=== PATIENT | male | born 1935 | race Caucasian/White ===

== ENCOUNTER → 2016-05-10 | Outpatient (CLI) | payer MEDICARE, BC ==
[~2016-05-10] MED LIST: AMARYL2 MG PO; CLARITIN10 MG PO; COREG12.5 MG PO; ENALAPRIL20 MG PO; FISH OIL 1000MG1 CAP PO; VERAPAMIL180 MG/TAB PO
== END ==
LOC: LAB 11:46
DX: E11.9 Type 2 diabetes mellitus without complications (principal); I10 Essential (primary) hypertension; Z12.5 Encounter for screening for malignant neoplasm of prostate; R20.2 Paresthesia of skin

== ENCOUNTER → 2016-05-14 | Outpatient (CLI) | payer MEDICARE, BC | LOC: CARDREHAB 08:19 | DX: R60.0 Localized edema (principal); I10 Essential (primary) hypertension; E11.9 Type 2 diabetes mellitus without complications; C19 Malignant neoplasm of rectosigmoid junction | CPT/HCPCS: A9500 ==

== ENCOUNTER → 2017-10-26 | Outpatient (CLI) | payer MEDICARE, BC ==
[2015-03-31 10:24] VITALS: BP 135/72
== END ==
LOC: RAD 09:29
DX: M19.011 Primary osteoarthritis, right shoulder (principal); R29.898 Other symptoms and signs involving the musculoskeletal system; Z91.81 History of falling

== ENCOUNTER → 2018-01-11 | Outpatient (CLI) | payer MEDICARE, BC ==
[2015-03-31 10:24] VITALS: BP 135/72
== END ==
LOC: RAD 07:27
DX: M25.511 Pain in right shoulder (principal); Z53.8 Procedure and treatment not carried out for other reasons

== ENCOUNTER → 2019-08-10 | Outpatient (CLI) | payer MEDICARE ==
[2015-03-31 10:24] VITALS: BP 135/72
[2019-08-10 11:26] LABS: HEMOGLOBIN 13.3 g/dL (13.5-18.0); MEAN CELL VOLUME 94 fl (78-100); MEAN CORPUSCULAR HEMOGLOBIN 30 pg (27-31); MEAN CORPUSCULAR HGB CONC 32 g/dL (33-37); PLATELET COUNT 127 K/mm3 (130-400); RED BLOOD COUNT 4.46 M/mm3 (4.20-5.60); RED CELL DISTRIBUTION WIDTH 13.9 % (11.5-14.5); WHITE BLOOD COUNT 8.1 K/mm3 (4.8-10.8)
[2019-08-10 11:30] LABS: ALBUMIN 4.1 g/dL (3.4-4.8); POTASSIUM 4.9 mmol/L (3.5-5.1)
[2019-08-10 11:31] LABS: CALCIUM 8.9 mg/dL (8.3-10.5)
[2019-08-10 11:34] LABS: TOTAL BILIRUBIN 0.4 mg/dL (0.2-1.2)
[2019-08-10 11:39] LABS: MAGNESIUM 1.7 mg/dL (1.60-2.60)
[2019-08-10 11:59] LABS: LYMPHOCYTE 69 % (20-51); MONOCYTE 4 % (3-10); NEUTROPHILS 27 % (42-75)
== END ==
LOC: LAB 11:03
PROVIDERS: Internal Medicine
DX: E11.9 Type 2 diabetes mellitus without complications (principal); I10 Essential (primary) hypertension; E78.2 Mixed hyperlipidemia; E23.0 Hypopituitarism; R43.0 Anosmia

== ENCOUNTER → 2020-05-01 | Outpatient (CLI) | payer MEDICARE ==
[2015-03-31 10:24] VITALS: BP 135/72
== END ==
LOC: LAB 08:00
DX: L03.221 Cellulitis of neck (principal)

== ENCOUNTER → 2020-06-30 | Outpatient (CLI) | payer MEDICARE ==
[2015-03-31 10:24] VITALS: BP 135/72
[2020-06-30 11:54] LABS: HEMATOCRIT 39.2 % (42.0-52.0); HEMOGLOBIN 12.6 g/dL (13.5-18.0); MEAN CELL VOLUME 93 fl (78-100); MEAN CORPUSCULAR HEMOGLOBIN 30 pg (27-31); MEAN CORPUSCULAR HGB CONC 32 g/dL (33-37); MEAN PLATELET VOLUME 11.3 fl (7.4-10.4); PLATELET COUNT 103 K/mm3 (130-400); RED BLOOD COUNT 4.21 M/mm3 (4.20-5.60); WHITE BLOOD COUNT 11.5 K/mm3 (4.8-10.8)
[2020-06-30 12:01] LABS: ALBUMIN 3.9 g/dL (3.4-4.8); POTASSIUM 4.5 mmol/L (3.5-5.1)
[2020-06-30 12:02] LABS: CALCIUM 8.9 mg/dL (8.3-10.5)
[2020-06-30 12:05] LABS: TOTAL BILIRUBIN 0.9 mg/dL (0.2-1.2)
[2020-06-30 12:07] LABS: NEUTROPHILS 28 % (42-75)
[2020-06-30 12:08] LABS: LYMPHOCYTE 66 % (20-51); MONOCYTE 5 % (3-10)
[2020-06-30 12:10] LABS: MAGNESIUM 1.93 mg/dL (1.60-2.60)
== END ==
LOC: LAB 11:32
PROVIDERS: Internal Medicine
DX: E11.9 Type 2 diabetes mellitus without complications (principal); I25.10 Atherosclerotic heart disease of native coronary artery without angina pectoris